=== PATIENT | female | born 1985 | race Hispanic/Latino ===

== ENCOUNTER → 2017-08-04 | Outpatient (CLI) | payer OTHER | LOC: M RAD 08:48 | DX: Z36.2 Encounter for other antenatal screening follow-up (principal) ==

== ENCOUNTER → 2017-09-15 | Outpatient (CLI) | payer OTHER ==
[2017-09-15 15:02] LABS: BASO % 0.2 % (0.0-1.0); EOS # 0.1 10^3/uL (0.0-0.50); EOS % 1.2 % (0.0-3.0); HEMOGLOBIN 12.1 g/dl (12.0-16.0); IMMATURE GRANULOCYTE % 0.3 % (0-3.0); LYMPH # 1.5 10^3/uL (1.5-4.5); LYMPH % 16.3 % (24.0-44.0); MEAN CORPUSCULAR HEMOGLOBIN 31.6 pg (27.0-33.0); MEAN CORPUSCULAR HGB CONC 33.6 g/dl (32.0-36.5); MONO # 0.5 10^3/uL (0.0-0.8); NEUTROPHILS # 6.9 10^3/uL (1.8-7.7); PLATELET COUNT, AUTOMATED 176 10^3/uL (150-450); RED BLOOD COUNT 3.83 10^6/uL (4.00-5.40); RED CELL DISTRIBUTION WIDTH 12.3 % (11.5-14.5)
[2017-09-15 16:44] LABS: CHLAMYDIA DNA AMPLIFICATION NEGATIVE (NEGATIVE); GC DNA AMPLIFICATION NEGATIVE (NEGATIVE)
[2017-09-16 10:39] LABS: RUBELLA IgG QUALITATIVE IMMUNE (IMMUNE)
[2017-09-16 10:58] LABS: HBsAg Prenatal NEGATIVE (NEGATIVE)
[2017-09-16 11:08] LABS: HIV 1&2 SCREEN CENTAUR NEGATIVE (NEGATIVE)
== END ==
LOC: M SMT 10:27
DX: Z34.82 Encounter for supervision of other normal pregnancy, second trimester (principal)

== ENCOUNTER → 2017-10-19 | Outpatient (CLI) | payer OTHER | LOC: M SMT 14:21 | DX: Z13.79 Encounter for other screening for genetic and chromosomal anomalies (principal) ==

== ENCOUNTER → 2017-12-14 | Outpatient (CLI) | payer OTHER ==
[2017-12-14 17:23] LABS: BASO % 0.4 % (0.0-1.0); EOS # 0.1 10^3/uL (0.0-0.50); EOS % 0.7 % (0.0-3.0); HEMATOCRIT 36.1 % (36.0-47.0); HEMOGLOBIN 11.8 g/dl (12.0-15.5); IMMATURE GRANULOCYTE % 0.9 % (0-3.0); LYMPH # 1.9 10^3/uL (1.5-4.5); MEAN CORPUSCULAR HEMOGLOBIN 31.7 pg (27.0-33.0); MEAN CORPUSCULAR HGB CONC 32.7 g/dl (32.0-36.5); MONO # 0.8 10^3/uL (0.0-0.8); MONO % 6.9 % (0.0-5.0); NEUTROPHILS # 8.1 10^3/uL (1.8-7.7); NEUTROPHILS % 74.1 % (36.0-66.0); PLATELET COUNT, AUTOMATED 178 10^3/uL (150-450); RED BLOOD COUNT 3.72 10^6/uL (4.00-5.40); RED CELL DISTRIBUTION WIDTH 12.4 % (11.5-14.5); WHITE BLOOD COUNT 10.9 10^3/uL (4.0-10.0)
[2017-12-14 17:34] LABS: GLUCOSE CHALLENGE TEST 1 HOUR 85 MG/DL (LESS THAN 140)
== END ==
LOC: M SMT 14:23
DX: Z34.82 Encounter for supervision of other normal pregnancy, second trimester (principal)

== ENCOUNTER → 2018-02-15 | Outpatient (REF) | payer OTHER | LOC: M LAB REF 13:27 | DX: Z34.83 Encounter for supervision of other normal pregnancy, third trimester (principal) ==

== ENCOUNTER 2018-03-09 06:03 | Inpatient (IN) | payer OTHER ==
[2018-03-09] MEDS: LR 1,000 ML IV ×3 (06:45→19:11)
[2018-03-09] MEDS: LACTATED RINGER'S 1000 ML IV (06:59)
[2018-03-09 07:03] LABS: HEMATOCRIT 39.7 % (36.0-47.0); HEMOGLOBIN 13.5 g/dl (12.0-15.5); MEAN CORPUSCULAR HEMOGLOBIN 32.6 pg (27.0-33.0); MEAN CORPUSCULAR VOLUME 95.9 fl (80.0-96.0); PLATELET COUNT, AUTOMATED 160 10^3/uL (150-450); RED BLOOD COUNT 4.14 10^6/uL (4.00-5.40); RED CELL DISTRIBUTION WIDTH 12.8 % (11.5-14.5); WHITE BLOOD COUNT 11.8 10^3/uL (4.0-10.0)
[2018-03-09] MEDS: BICITRA 30ML SOLN UDC PO (07:33)
[2018-03-09] MEDS ORDERED: NALOXONE INJ 0.4 MG/1 ML VIAL (J2310) IV ×2 (07:43)
[2018-03-09] MEDS ORDERED: METOCLOPRAMIDE INJ 10MG/2ML VIAL (J2765) IV ×2 (07:43→09:30)
[2018-03-09] MEDS ORDERED: NALBUPHINE HCL 10 MG/ML AMP (J2300) IV (07:43)
[2018-03-09] MEDS ORDERED: ONDANSETRON 4MG/2ML VIAL (J2405) IV ×3 (07:43→10:00)
[2018-03-09] MEDS ORDERED: PHENYLephrine HCL 500 MCG/5 ML (100MCG/ML) SYRINGE (J2370) As Ordered ×2 (07:55→08:30)
[2018-03-09] MEDS ORDERED: OXYTOCIN INJ 10 UNITS/ML VIAL (J2590) As Ordered (07:55)
[2018-03-09] MEDS ORDERED: MORPHINE PRES-FREE INJ 10 MG/10 ML VIAL (J2274) As Ordered (07:55)
[2018-03-09] MEDS ORDERED: KETOROLAC 60 MG/2 ML VIAL (J1885) As Ordered (08:15)
[2018-03-09] MEDS ORDERED: ONDANSETRON 4MG/2ML VIAL (J2405) As Ordered (08:28)
[2018-03-09] MEDS: PRENATAL VITAMINS CHEWABLE TABLET PO (09:00)
[2018-03-09] MEDS ORDERED: PERCOCET 5MG/325MG TAB PO ×3 (09:30→10:00)
[2018-03-09] MEDS ORDERED: fentaNYL 100 MCG/2 ML INJECTION (J3010) IV (09:30)
[2018-03-09] MEDS ORDERED: MEPERIDINE INJ 25 MG/ML VIAL (J2175) IV (09:30)
[2018-03-09] MEDS ORDERED: LR 1,000 ML IV (09:30)
[2018-03-09] MEDS ORDERED: PROMETHAZINE 25 MG TAB PO (10:00)
[2018-03-09] MEDS ORDERED: MEASLES,MUMPS,RUBELLA VACCINE INJ (MMR-II) (90707) SC (10:00)
[2018-03-09] MEDS ORDERED: RHOGAM 300 MCG (1500 IU) INJ (J2790) IM (10:00)
[2018-03-09] MEDS: OXYTOCIN DRIP 30 UNITS in APPROPRIATE DILUENT 1 EA IV (10:04)
[2018-03-09] MEDS: KETOROLAC 30 MG/ML VIAL (J1885) IV ×2 (13:27→20:04)
[2018-03-09] MEDS: ADACEL/BOOSTRIX VACCINE (DIPHTH/PERTUSS/ACELL/TETANUS)0.5ML SYR (90715) IM (13:30)
[2018-03-09] MEDS: DOCUSATE SODIUM 100 MG CAP PO (20:03)
[2018-03-10] MEDS: LR 1,000 ML IV (02:00)
[2018-03-10] MEDS: KETOROLAC 30 MG/ML VIAL (J1885) IV (02:18)
[2018-03-10 06:58] LABS: HEMATOCRIT 35.6 % (36.0-47.0); HEMOGLOBIN 11.8 g/dl (12.0-15.5); MEAN CORPUSCULAR HEMOGLOBIN 32.5 pg (27.0-33.0); MEAN CORPUSCULAR HGB CONC 33.1 g/dl (32.0-36.5); MEAN CORPUSCULAR VOLUME 98.1 fl (80.0-96.0); PLATELET COUNT, AUTOMATED 134 10^3/uL (150-450); RED BLOOD COUNT 3.63 10^6/uL (4.00-5.40); WHITE BLOOD COUNT 11.4 10^3/uL (4.0-10.0)
[2018-03-10] MEDS: DOCUSATE SODIUM 100 MG CAP PO ×2 (08:40→19:53)
[2018-03-10] MEDS: PRENATAL VITAMINS CHEWABLE TABLET PO (08:40)
[2018-03-10] MEDS: IBUPROFEN 800 MG TAB PO ×2 (09:58→17:51)
[2018-03-11] MEDS: IBUPROFEN 800 MG TAB PO ×2 (01:00→09:30)
[2018-03-11] MEDS: PRENATAL VITAMINS CHEWABLE TABLET PO (09:29)
[2018-03-11] MEDS: DOCUSATE SODIUM 100 MG CAP PO (09:29)
== END 2018-03-11 13:30 | disposition home or self-care (01) | DRG 766 ==
LOC: M LDI 06:03 → M OBS 12:07
PROVIDERS: Obstetrics & Gynecology
PROC: 10D00Z1 Extraction of Products of Conception, Low, Open Approach (ICD-10-PCS; principal; 2018-03-09 07:30)
PROC: 0UB70ZZ Excision of Bilateral Fallopian Tubes, Open Approach (ICD-10-PCS; 2018-03-09 07:30)
DX: O34.211 Maternal care for low transverse scar from previous cesarean delivery (principal); Z3A.39 39 weeks gestation of pregnancy; Z37.0 Single live birth; Z30.2 Encounter for sterilization

== ENCOUNTER → 2018-09-13 | Outpatient (CLI) | payer OTHER ==
[~2018-09-13] MED LIST: COLA100C5 PO; IBUP80TA PO; PERCOCET PO; PREN1TAB11 PO
[2018-09-13 17:44] LABS: BASO % 0.4 % (0.0-1.0); EOS # 0.1 10^3/uL (0.0-0.50); EOS % 1.4 % (0.0-3.0); HEMATOCRIT 42.3 % (36.0-47.0); HEMOGLOBIN 13.8 g/dl (12.0-15.5); LYMPH # 1.7 10^3/uL (1.5-4.5); LYMPH % 33.3 % (24.0-44.0); MEAN CORPUSCULAR HEMOGLOBIN 30.5 pg (27.0-33.0); MEAN CORPUSCULAR HGB CONC 32.6 g/dl (32.0-36.5); MEAN CORPUSCULAR VOLUME 93.6 fl (80.0-96.0); MONO # 0.4 10^3/uL (0.0-0.8); MONO % 8.5 % (0.0-5.0); NEUTROPHILS # 2.9 10^3/uL (1.8-7.7); NEUTROPHILS % 56.2 % (36.0-66.0); PLATELET COUNT, AUTOMATED 185 10^3/uL (150-450); RED BLOOD COUNT 4.52 10^6/uL (4.00-5.40); WHITE BLOOD COUNT 5.2 10^3/uL (4.0-10.0)
[2018-09-13 17:55] LABS: ALBUMIN 3.9 GM/DL (3.2-5.2); ALT/SGPT 19 U/L (12-78); BILIRUBIN,TOTAL 0.9 MG/DL (0.2-1.0); BLOOD UREA NITROGEN 12 MG/DL (7-18); C REACTIVE PROTEIN QUANTITATIV < 0.30 MG/DL (0.00-0.30); CALCIUM LEVEL 8.9 MG/DL (8.5-10.1); CARBON DIOXIDE LEVEL 29 MEQ/L (21-32); CHLORIDE LEVEL 108 MEQ/L (98-107); CHOLESTEROL LEVEL 135 MG/DL (<200); CHOLESTEROL RISK RATIO 2.213 (<5); CREATININE FOR GFR 0.58 MG/DL (0.55-1.30); GLOMERULAR FILTRATION RATE > 60.0 (>60); GLUCOSE, FASTING 80 MG/DL (70-100); HDL CHOLESTEROL 61 MG/DL (>40); LDL CHOLESTEROL 66 MG/DL (<100); NON-HDL-C 74 MG/DL; POTASSIUM SERUM 4.2 MEQ/L (3.5-5.1); SODIUM LEVEL 141 MEQ/L (136-145); THYROID STIMULATING HORMONE 0.008 uIU/ML (0.358-3.740); TOTAL PROTEIN 7.1 GM/DL (6.4-8.2); TRIGLYCERIDES LEVEL 40 MG/DL (<150)
[2018-09-13 18:08] LABS: HEMOGLOBIN A1c 4.9 %
[2018-09-13 18:18] LABS: ERYTHROCYTE SEDIMENTATION RATE 6 mm/hr (0-20)
--- NOTE | 2018-09-14 02:42 | REP ---
Clinical: Lower back pain . Technique: AP, lateral, flexion/extension, bilateral oblique, and coned-down views. Findings: Alignment and lordosis is maintained. The vertebral bodies including transverse process and spinous processes are intact and normal. There is no evidence for acute fracture / compression injury or subluxation. No evidence for spondylolysis or spondylolisthesis. No significant degenerative change is noted. Impression: Normal lumbosacral spine radiograph series. Electronically Signed by Apolinar Dinh MD 09/14/2018 02:33 A
== END ==
LOC: M SMT 12:54
PROVIDERS: ATTEND Physician Assistant
DX: G43.009 Migraine without aura, not intractable, without status migrainosus (principal); Z13.29 Encounter for screening for other suspected endocrine disorder; M54.5 Low back pain

== ENCOUNTER → 2018-09-28 | Outpatient (REF) | payer OTHER ==
[2018-09-28 13:34] LABS: FREE T3 4.1 PG/ML (2.2-4.0); FREE T4 1.51 NG/DL (0.76-1.46); THYROID STIMULATING HORMONE < 0.005 uIU/ML (0.358-3.740)
[2018-09-29 09:14] LABS: THYROID PEROXIDASE ANTIBODY < 28.0 U/ML (<60.0)
[2018-09-30 08:07] LABS: TSH RECEPTOR ASSAY 0.89 IU/L (0.00-1.75)
[2018-10-03 16:48] LABS: THRYOGLOBULIN ANTIBODIES (ATA) 2.7 IU/mL (0.0-0.9); THYROGLOBULIN RIA 21 ng/mL (.)
== END ==
LOC: M LABDRAW1 12:31
PROVIDERS: ATTEND Physician Assistant
DX: E05.90 Thyrotoxicosis, unspecified without thyrotoxic crisis or storm (principal)

== ENCOUNTER → 2018-10-04 | Outpatient (CLI) | payer OTHER ==
--- NOTE | 2018-10-05 21:15 | REP ---
THYROID UPTAKE AND SCAN: 10/05/2018. Clinical history: Abnormal thyroid ultrasound. The patient states a number of symptoms suggesting hyperthyroid. Comparison: Ultrasound 09/28/2018 at [facility]. Technique: The patient received 441 mCi of I-123 as sodium iodide orally. 24 hour uptake measurements and images were obtained. Findings: Extensive background activity noted. Poor uptake bilaterally with subtle slight increased uptake more on the right than left, but certainly no warm or hot nodule. No focal defects. 24 hour uptake measurement is 1.29%. The normal uptake measurements are 25 - 35%. Impression: 1. Severe hypothyroidism with 24 hour uptake only 1.29%. There may be slight asymmetric increased uptake in the right lobe compared to left, but overall minimal and no hot nodule identified. No definite cold nodule. Electronically Signed by Hugo Jean MD 10/06/2018 09:42 P
== END ==
LOC: M RAD 09:50
PROVIDERS: ATTEND Physician Assistant
DX: E03.9 Hypothyroidism, unspecified (principal)
CPT/HCPCS: 78012; A9516

== ENCOUNTER → 2018-11-29 | Outpatient (CLI) | payer OTHER ==
[2018-11-29 10:37] LABS: BASO % 0.5 % (0.0-1.0); EOS # 0.1 10^3/uL (0.0-0.50); EOS % 1.9 % (0.0-3.0); HEMATOCRIT 43.4 % (36.0-47.0); HEMOGLOBIN 13.8 g/dl (12.0-15.5); LYMPH # 2.5 10^3/uL (1.5-4.5); LYMPH % 34.2 % (24.0-44.0); MEAN CORPUSCULAR HEMOGLOBIN 29.9 pg (27.0-33.0); MEAN CORPUSCULAR HGB CONC 31.8 g/dl (32.0-36.5); MEAN CORPUSCULAR VOLUME 94.1 fl (80.0-96.0); MONO # 0.5 10^3/uL (0.0-0.8); MONO % 6.1 % (0.0-5.0); NEUTROPHILS # 4.2 10^3/uL (1.8-7.7); PLATELET COUNT, AUTOMATED 290 10^3/uL (150-450); RED BLOOD COUNT 4.61 10^6/uL (4.00-5.40); WHITE BLOOD COUNT 7.4 10^3/uL (4.0-10.0)
[2018-11-29 10:44] LABS: FREE T3 2.6 PG/ML (2.2-4.0); FREE T4 0.99 NG/DL (0.76-1.46); THYROID STIMULATING HORMONE 1.69 uIU/ML (0.358-3.740)
== END ==
LOC: M SMT 08:42
PROVIDERS: ATTEND Physician Assistant
DX: E05.80 Other thyrotoxicosis without thyrotoxic crisis or storm (principal)

== ENCOUNTER → 2018-11-29 | Outpatient (CLI) | payer OTHER ==
[2018-11-29 10:44] LABS: FREE T4 0.97 NG/DL (0.76-1.46); THYROID STIMULATING HORMONE 1.65 uIU/ML (0.358-3.740)
== END ==
LOC: M SMT 08:40
PROVIDERS: ATTEND Internal Medicine Endocrinology, Diabetes & Metabolism
DX: O90.5 Postpartum thyroiditis (principal); Z3A.00 Weeks of gestation of pregnancy not specified

== ENCOUNTER → 2019-01-31 | Outpatient (CLI) | payer OTHER ==
[2019-01-31 13:25] LABS: FREE T4 0.93 NG/DL (0.76-1.46); THYROID STIMULATING HORMONE 1.15 uIU/ML (0.358-3.740)
== END ==
LOC: M SMT 10:00
PROVIDERS: ATTEND Nurse Practitioner Family
DX: O90.5 Postpartum thyroiditis (principal)